=== PATIENT | male | born 1950 | race Two or more races ===

== ENCOUNTER 2019-11-03 13:16 | Inpatient (IN) | payer OTHER ==
[~2019-11-03] VITALS: Ht 160 cm; Wt 68.9 kg
[2019-11-03] MEDS ORDERED: CLINDAMYCIN 600MG IV 50 ML IV ONE (13:30)
[2019-11-03] MEDS ORDERED: PIPERACILLIN-TAZOB 3.375GM 100 ML IV ONE (13:30)
[2019-11-03 14:10] LABS: Basophils # (auto) 0.1 10 ^3/uL (0-0.2); Basophils % (auto) 0.6 % (0.0-2.0); Eosinophils # (auto) 0.2 10 ^3/uL (0-0.8); Eosinophils % (auto) 2.5 % (0.0-7.0); Hematocrit 41.1 % (41.0-53.0); Hemoglobin 13.7 g/dL (13.5-17.5); Lymphocytes # (auto) 1.2 10 ^3/uL (0.4-5.4); Lymphocytes % (auto) 14.1 % (10.0-50.0); Mean Corpuscular Hemoglobin 28.8 pg (28.0-32.0); Mean Corpuscular Hgb Conc. 33.4 g/dL (32.0-36.0); Mean Corpuscular Volume 86.3 fL (80.0-100.0); Monocytes # (auto) 0.5 10 ^3/uL (0-1.3); Monocytes % (auto) 6.1 % (0.0-12.0); Neutrophils # (auto) 6.8 10 ^3/uL (1.6-8.6); Neutrophils % (auto) 76.7 % (37.0-80.0); Nucleated Red Blood Cells % 0.1 %; Platelet Count (auto) 238 10^3/uL (140-450); Red Blood Cells 4.76 10^6/uL (4.5-5.90); Red Cell Distribution Width 13.3 % (11.8-14.3); White Blood Cell 8.8 10^3/uL (4.4-10.8)
[2019-11-03 14:26] LABS: Albumin 3.6 g/dL (3.4-5.0); BUN/Creatinine Ratio 9.9; Calcium 8.6 mg/dL (8.5-10.1); Potassium 4.5 mmol/L (3.5-5.1)
[2019-11-03 14:29] LABS: Bilirubin, Total 0.5 mg/dL (0.2-1.0); Total Protein 8.7 g/dL (6.4-8.2)
[2019-11-03] MEDS: SODIUM CHLORIDE 0.9% 1,000 ML IV SCH (14:47)
[2019-11-03] MEDS ORDERED: MORPHINE SULF INJ 2 MG/ML SYRINGE 1ML IV PRN (15:00)
[2019-11-03] MEDS ORDERED: traMADol HCL 50 MG TAB PO PRN (15:00)
[2019-11-03] MEDS ORDERED: DEXTROSE (50%) 50ML SYRG IV PRN (15:00)
[2019-11-03] MEDS ORDERED: TEMAZEPAM 15 MG CAP PO PRN (15:00)
[2019-11-03] MEDS ORDERED: ACETAMINOPHEN 500 MG TAB PO PRN (15:00)
--- NOTE | 2019-11-03 17:25 | NUR ---
MS admit from ER KANIKA VIDALES admitted to [facility] after SBAR received. Patient oriented to Rosa Hennessy primary RN, unit, room, bed, and unit policies regarding patient care and visiting hours. Patient weighed by bedscale and encouraged to call if they need something. All questions and concerns addressed, patient verbalized understanding.
[2019-11-03] MEDS: ACCU-CHEK COMFORT CURVE STRIP VI SCH ×2 (18:30→21:34)
[2019-11-03] MEDS: InsuLIN REG 1unit/0.01ml Soln (100units/ml) SC SCH ×2 (18:30→21:35)
--- NOTE | 2019-11-03 18:32 | NUR ---
URINE COLLECTED AND SENT TO LAB.
--- NOTE | 2019-11-03 18:35 | NUR ---
BLOOD SUGAR IS 136, PATIENT REFUSED INSULIN. PER PATIENT HE TAKES PILLS AT HOME AND DOES NOT WANT INSULIN.
[2019-11-03 18:47] LABS: Urine Bacteria NONE SEEN /hpf (None Seen); Urine Blood Negative /uL (Negative); Urine WBC 1 /hpf (0 - 3)
--- NOTE | 2019-11-03 19:30 | NUR ---
Opening Shift Note Assumed care of patient, awake and alert x4. Patient denies shortness of breath or pain at this time. Instructed on plan of care and to call for assistance as needed, patient verbalized understanding. Bed is locked in lowest position, side rails x 2 are up, call light is within reach, and bed alarm is on.
--- NOTE | 2019-11-03 20:00 | NUR ---
Wound Pictures Patient noted to have an open wound to the lateral right foot with erythema. Patient also noted to have an open wound between right 4th and 5th digit with erythema and slough noted. Patient noted to have wound to plantar of right foot with erythema. Wounds were cleaned with wound cleanser, patted dry, clean gauze was applied, and wrapped with kerlix. Pictures taken of the wounds for reference.
[2019-11-03] MEDS ORDERED: LISI40TA11 PO (20:04)
[2019-11-03] MEDS ORDERED: CEPH500C PO (20:04)
[2019-11-03] MEDS ORDERED: AMLO5TAB15 PO (20:06)
[2019-11-03] MEDS ORDERED: GLIP5TAB12 PO (20:06)
[2019-11-03] MEDS: CLINDAMYCIN 600MG IV 50 ML IV SCH (21:19)
[2019-11-03 21:53] VITALS: BP 133/74
[2019-11-04 05:00] VITALS: BP 144/81
[2019-11-04] MEDS: CLINDAMYCIN 600MG IV 50 ML IV SCH ×3 (05:47→22:12)
[2019-11-04] MEDS: SODIUM CHLORIDE 0.9% 1,000 ML IV SCH ×3 (05:47→20:51)
[2019-11-04] MEDS: ACCU-CHEK COMFORT CURVE STRIP VI SCH ×4 (05:55→22:12)
[2019-11-04] MEDS: InsuLIN REG 1unit/0.01ml Soln (100units/ml) SC SCH ×4 (05:55→22:17)
[2019-11-04 06:34] LABS: Potassium 5.1 mmol/L (3.5-5.1)
[2019-11-04 06:51] LABS: Albumin 3.1 g/dL (3.4-5.0); BUN/Creatinine Ratio 11.6; Bilirubin, Total 0.6 mg/dL (0.2-1.0); Calcium 8.3 mg/dL (8.5-10.1); Total Protein 7.4 g/dL (6.4-8.2)
--- NOTE | 2019-11-04 08:00 | NUR ---
Opening Shift Note Assumed care of patient, awake and alert. No S/S of distress/SOB or pain. Instructed on POC and to call for assist PRN, will continue to monitor for changes Q1hr and PRN.
[2019-11-04 09:00] VITALS: BP 137/78
[2019-11-04] MEDS: cefTRIAXone 1GM/50ML D5W 50 ML IV SCH (09:21)
--- NOTE | 2019-11-04 10:19 | NUR ---
WOUND CARE NOTE: Noted photographs of patient's wounds taken by bedside nurse upon admission. Process pictures and placed in charts. Podiatry is on the case. Daily Rt foot wound dressing change order placed per sales product manager. Skin/wound care plan placed. RECOMMENDATION: Follow sales product manager order
[2019-11-04 13:00] VITALS: BP 136/79
--- NOTE | 2019-11-04 16:15 | NUR ---
Spoke with Dr. Ellsworth of Podiatry re: cardiology consult, seen by Dr. Souza of Cardiology and ordered bilateral lower extremity angiogram on Monday 11/06. Orders received from Dr. Ellsworth to resume diet.
[2019-11-04 17:00] VITALS: BP 138/81
--- NOTE | 2019-11-04 19:15 | NUR ---
Opening Shift Note Assumed care of patient, awake and alert. No S/S of distress/SOB or pain. Instructed on POC and to call for assist PRN, will continue to monitor for changes Q1hr and PRN. Safety precautions maintained bed is in lowest position and bed rails 2x. Call light and bedside table are within reach.
[2019-11-05 05:00] VITALS: BP 141/75
--- NOTE | 2019-11-05 05:00 | NUR ---
Doppler Per Doppler, Dorsal pedal pulses present on both right and left foot. Patient has no complaints at this time and no s/s of distress or SOB. Will continue to monitor Q1 and PRN.
[2019-11-05] MEDS: SODIUM CHLORIDE 0.9% 1,000 ML IV SCH ×2 (05:36→16:21)
[2019-11-05] MEDS: CLINDAMYCIN 600MG IV 50 ML IV SCH ×3 (05:36→21:53)
[2019-11-05 06:22] LABS: BUN/Creatinine Ratio 14.7; Calcium 8.1 mg/dL (8.5-10.1); Potassium 4.4 mmol/L (3.5-5.1)
[2019-11-05] MEDS: ACCU-CHEK COMFORT CURVE STRIP VI SCH ×4 (06:29→21:53)
[2019-11-05] MEDS: InsuLIN REG 1unit/0.01ml Soln (100units/ml) SC SCH ×4 (06:29→21:50)
--- NOTE | 2019-11-05 07:25 | NUR ---
End of Shift Note Endorsed care to Dolores HOLLIS. Patient has no s/s of distress or SOB. Patient awakens to name.
--- NOTE | 2019-11-05 08:30 | NUR ---
Opening Shift Note Assumed care of patient, awake, alert, and oriented. No S/S of distress/SOB or pain. Bed in lowest/locked position, bed rails up x2, call light within reach. Instructed on POC and to call for assist PRN. Will continue to monitor for changes Q1hr and PRN.
[2019-11-05 09:00] VITALS: BP 139/79
[2019-11-05] MEDS: FLORASTOR (S. BOULARDII) 250 MG CAP PO SCH (09:46)
[2019-11-05] MEDS: ENOXAPARIN SOD 40 MG/0.4 ML SYRINGE SC SCH (09:46)
[2019-11-05] MEDS: cefTRIAXone 1GM/50ML D5W 50 ML IV SCH (09:46)
--- NOTE | 2019-11-05 11:00 | NUR ---
MD ROUNDS DR TAI AT BEDSIDE DISCUSSING POC WITH PATIENT. NO NEW ORDERS RECIEVED AT THIS TIME. WILL CONTINUE TO MONITOR
--- NOTE | 2019-11-05 11:10 | NUR ---
WOUND WOUND DRESSING CHANGED TO RIGHT FOOT PER MD ORDERS. PATIENT TOLERATED WELL. WILL CONTINUE TO MONITOR
[2019-11-05 13:00] VITALS: BP 139/78
--- NOTE | 2019-11-05 16:34 | NUR ---
Nutrition Assessment Notes Please refer to link for full assessment notes. Est Energy needs: 9838-8000 kcals (17-20 kcal/kgBW) Est Protein needs: 74-92 gms/day (1.2-1.5 gm/kgBW) d/t wound Will continue to monitor and reassess prn. Addendum: 11/05/19 at [address] Amended: Links added.
[2019-11-05 17:00] VITALS: BP 135/79
--- NOTE | 2019-11-05 19:25 | NUR ---
Opening Shift Note Assumed care of patient, awake and alert. No S/S of distress/SOB or pain. Instructed on POC and to call for assist PRN, will continue to monitor for changes Q1hr and PRN. Safety precautions maintained bed is in lowest position and locked, bed rails 2x. Call light and bedside table are within reach.
--- NOTE | 2019-11-05 20:00 | NUR ---
Bilateral dorsal pedal pulses present via Doppler Patient has no complaints at this time. Will continue to monitor Q1 and PRN.
[2019-11-05 22:04] VITALS: BP 151/79
[2019-11-06] MEDS: SODIUM CHLORIDE 0.9% 1,000 ML IV SCH ×3 (03:04→23:03)
[2019-11-06 05:00] VITALS: BP 151/77
--- NOTE | 2019-11-06 05:00 | NUR ---
Wound Care Performed wound care on right foot per MD orders. Patient tolerated well. Will continue to monitor Q1 and PRN.
[2019-11-06] MEDS: CLINDAMYCIN 600MG IV 50 ML IV SCH ×3 (05:38→23:03)
[2019-11-06] MEDS: ACCU-CHEK COMFORT CURVE STRIP VI SCH ×4 (06:24→22:00)
[2019-11-06] MEDS: InsuLIN REG 1unit/0.01ml Soln (100units/ml) SC SCH ×4 (06:24→22:00)
--- NOTE | 2019-11-06 07:18 | NUR ---
End of Shift Note Endorsed care to Dolores HOLLIS. At this time patient has no s/s of distress or pain, awakens to voice and touch, no complaints.
[2019-11-06 09:00] VITALS: BP 139/83
[2019-11-06] MEDS: ENOXAPARIN SOD 40 MG/0.4 ML SYRINGE SC SCH (09:04)
[2019-11-06] MEDS: cefTRIAXone 1GM/50ML D5W 50 ML IV SCH (09:04)
[2019-11-06] MEDS: FLORASTOR (S. BOULARDII) 250 MG CAP PO SCH (09:05)
--- NOTE | 2019-11-06 11:30 | NUR ---
MD ROUNDS DR TAI AT BEDSIDE DISCUSSING POC WITH PATIENT. NO NEW ORDERS RECIEVED AT THIS TIME. WILL CONTINUE TO MONITOR
[2019-11-06 13:00] VITALS: BP 150/86
[2019-11-06 17:00] VITALS: BP 140/82
--- NOTE | 2019-11-06 19:15 | NUR ---
Opening Shift Note Assumed care of patient, awake, alert, and oriented x4. No S/S of distress/SOB or pain. Instructed on POC and to call for assist PRN, will continue to monitor for changes Q1hr and PRN. Safety precautions in place bed is in lowest position and locked, bed rails 2x. Call light and bedside table are within reach.
[2019-11-06 21:42] VITALS: BP 142/77
--- NOTE | 2019-11-06 22:00 | NUR ---
Refused insulin Blood sugar 133. Patient states he will not be eating anymore for the night and wants to hold the insulin. Will continue to monitor Q1 and PRN.
[2019-11-07 05:00] VITALS: BP 144/88
--- NOTE | 2019-11-07 05:00 | NUR ---
Wound Care Performed wound care to right foot per MD orders. Patient tolerated well. Will continue to monitor Q1 and PRN.
[2019-11-07 06:19] LABS: Basophils # (auto) 0.1 10 ^3/uL (0-0.2); Basophils % (auto) 0.9 % (0.0-2.0); Eosinophils # (auto) 0.3 10 ^3/uL (0-0.8); Eosinophils % (auto) 5.3 % (0.0-7.0); Hematocrit 39.8 % (41.0-53.0); Hemoglobin 13.4 g/dL (13.5-17.5); Lymphocytes # (auto) 1.1 10 ^3/uL (0.4-5.4); Lymphocytes % (auto) 16.8 % (10.0-50.0); Mean Corpuscular Hemoglobin 29.1 pg (28.0-32.0); Mean Corpuscular Hgb Conc. 33.8 g/dL (32.0-36.0); Mean Corpuscular Volume 86.2 fL (80.0-100.0); Monocytes # (auto) 0.4 10 ^3/uL (0-1.3); Neutrophils # (auto) 4.5 10 ^3/uL (1.6-8.6); Nucleated Red Blood Cells % 0.1 %; Platelet Count (auto) 242 10^3/uL (140-450); Red Blood Cells 4.61 10^6/uL (4.5-5.90); Red Cell Distribution Width 13.5 % (11.8-14.3); White Blood Cell 6.4 10^3/uL (4.4-10.8)
[2019-11-07] MEDS: InsuLIN REG 1unit/0.01ml Soln (100units/ml) SC SCH ×4 (06:22→22:00)
[2019-11-07] MEDS: ACCU-CHEK COMFORT CURVE STRIP VI SCH ×4 (06:22→22:00)
[2019-11-07 06:34] LABS: INR 0.97 (0.9-1.15); Partial Thromboplastin Time 29.9 sec (23.64-32.05)
[2019-11-07 06:38] LABS: Potassium 5.2 mmol/L (3.5-5.1)
[2019-11-07 06:48] LABS: BUN/Creatinine Ratio 13.7
[2019-11-07] MEDS: CLINDAMYCIN 600MG IV 50 ML IV SCH (07:00)
--- NOTE | 2019-11-07 07:28 | NUR ---
End of Shift Note Endorsed care to Jill HOLLIS. At this time patient has no s/s of distress or SOB. Patient is alert and oriented x4. No complaints at this time.
[2019-11-07] MEDS ORDERED: LIDOCAINE 2%HCL (LOCAL ANESTH.) INJ 20ML MDV ONE (07:52)
[2019-11-07] MEDS ORDERED: IOHEXOL 350 MG/ML 100ML IJ ONE ×2 (07:52→09:19)
[2019-11-07] MEDS ORDERED: ANGIOMAX 250 MG VIAL IV ONE (08:20)
[2019-11-07] MEDS ORDERED: MIDAZOLAM HCL 1MG/1ML-2 ML VIAL ONE (08:22)
[2019-11-07] MEDS ORDERED: fentaNYL CITRATE 100 MCG/2 ML VL ONE (08:22)
[2019-11-07] MEDS ORDERED: SODIUM CHL 0.9% 50 ML ONE (08:23)
[2019-11-07] MEDS: SODIUM CHLORIDE 0.9% 1,000 ML IV SCH ×2 (08:47→15:03)
[2019-11-07 09:00] VITALS: BP 139/87
[2019-11-07] MEDS: cefTRIAXone 1GM/50ML D5W 50 ML IV SCH (09:00)
[2019-11-07] MEDS ORDERED: CLOPIDOGREL 300 MG TAB ONE (09:51)
[2019-11-07] MEDS: ENOXAPARIN SOD 40 MG/0.4 ML SYRINGE SC SCH (10:00)
--- NOTE | 2019-11-07 10:58 | NUR ---
RETURNED TO ROOM FROM INDUSTRIAL RELATIONS COMMISSIONER DRESSING TO LEFT GROIN CLEAN DRY AND INTACT.
[2019-11-07 13:00] VITALS: BP 135/80
[2019-11-07] MEDS: FLORASTOR (S. BOULARDII) 250 MG CAP PO SCH (14:53)
[2019-11-07] MEDS: ASPirin-EC 81 mg tab PO SCH (14:53)
[2019-11-07 17:00] VITALS: BP 155/88
--- NOTE | 2019-11-07 19:15 | NUR ---
Opening shift note Assumed care of patient. Patient A&Ox4 sitting up in bed, respirations even and non-labored with no s/s of distress. Discussed POC with patient who verbalized understanding. Bed locked/lowered with 2 side rails up. Call light within reach, will continue to monitor.
--- NOTE | 2019-11-07 20:00 | NUR ---
IV placed: Patient IV to left FA leaking, removed with catheter intact. New IV placed in right FA, 20 gauge. Patient tolerated well.
[2019-11-07] MEDS: LINEZOLID 600MG/300ML 300 ML IV SCH (21:30)
[2019-11-07 22:00] VITALS: BP 144/83
[2019-11-08] MEDS: SODIUM CHLORIDE 0.9% 1,000 ML IV SCH ×2 (03:57→15:29)
[2019-11-08 05:00] VITALS: BP 153/85
--- NOTE | 2019-11-08 05:30 | NUR ---
Dressing change: Dressing change to right foot/toe per wound care instructions. Patient tolerated well.
[2019-11-08] MEDS: ACCU-CHEK COMFORT CURVE STRIP VI SCH ×4 (06:32→21:53)
[2019-11-08] MEDS: InsuLIN REG 1unit/0.01ml Soln (100units/ml) SC SCH ×4 (06:32→21:58)
--- NOTE | 2019-11-08 07:24 | NUR ---
AWAKE ALERT ORIENTED TIMES 4 DENIES ANY PAIN AT THIS TIME PLAN FOR SURGERY TOMORROW.
[2019-11-08 08:45] VITALS: BP 139/88
[2019-11-08] MEDS: ASPirin-EC 81 mg tab PO SCH (09:52)
[2019-11-08] MEDS: ENOXAPARIN SOD 40 MG/0.4 ML SYRINGE SC SCH (09:53)
[2019-11-08] MEDS: FLORASTOR (S. BOULARDII) 250 MG CAP PO SCH (09:58)
[2019-11-08] MEDS: LINEZOLID 600MG/300ML 300 ML IV SCH ×2 (09:59→21:35)
[2019-11-08] MEDS ORDERED: CLOPIDOGREL BISULFATE 75 MG TAB PO SCH (10:00)
[2019-11-08 12:50] VITALS: BP 148/84
[2019-11-08 17:00] VITALS: BP 147/72
[2019-11-08 22:00] VITALS: BP 154/85
--- NOTE | 2019-11-08 22:24 | NUR ---
1899.REPORT OBTAINED ON PATIENT. 1999. PATIENT SEEN IN ROOM LYING SUPINE ON HIS BED. FEELS WELL. DENIED PAIN. AWARE OF HIS SURGICAL PROCEDURE IN AM. WILL SIGN CONSENT
[2019-11-09] MEDS: SODIUM CHLORIDE 0.9% 1,000 ML IV SCH (00:26)
--- NOTE | 2019-11-09 01:56 | NUR ---
WILL SIGN CONSENT AFTER DAY BREAK. STATED THERE IS POOR VISION.
--- NOTE | 2019-11-09 02:29 | NUR ---
PATIENT IS SLEEPING AT THIS TIME. IVF INFUSING. IV SITE CLEAR AND DRY.
[2019-11-09 05:00] VITALS: BP 141/73
--- NOTE | 2019-11-09 05:19 | NUR ---
0500. PATIENT AWAKE. BODY WIPED DOWN WITH CHLORHEXIDINE WIPES.
[2019-11-09] MEDS: ACCU-CHEK COMFORT CURVE STRIP VI SCH (06:19)
[2019-11-09] MEDS: InsuLIN REG 1unit/0.01ml Soln (100units/ml) SC SCH (06:20)
--- NOTE | 2019-11-09 07:30 | NUR ---
Opening Shift Note Assuming care of patient at this time. Patient is awake and alert. Patient denies pain. Patient shows no signs or symptoms of distress or shortness of breath. Bed is locked and lowered with side rails up x2. Instructed patient on the plan of care for today and call for assistance as needed. Call light within reach. Will continue to round hourly and as needed.
[2019-11-09] MEDS ORDERED: BUPIVACAINE HCL 50 ML ONE (08:05)
[2019-11-09] MEDS ORDERED: LIDOCAINE 1% HCL (LOCAL ANESTH.) INJ 20ML MDV ONE ×2 (08:05→08:20)
--- NOTE | 2019-11-09 08:25 | NUR ---
IV insertion IV access obtained, via clean sterile technique by inserting 22 gauge catheter at left forearm. IV secured properly. No trauma to site. Patient tolerated well.
[2019-11-09] MEDS ORDERED: SODIUM CHLORIDE LOCK 10 ML ONE (08:38)
[2019-11-09] MEDS ORDERED: ONDANSETRON HCL 4 MG/2 ML VIAL ONE (08:38)
[2019-11-09] MEDS ORDERED: fentaNYL CITRATE 100 MCG/2 ML VL ONE (08:38)
[2019-11-09] MEDS ORDERED: MIDAZOLAM HCL 1MG/1ML-2 ML VIAL ONE (08:38)
[2019-11-09] MEDS ORDERED: PROPOFOL 10 MG/ML 20 ML IV ONE (08:38)
--- NOTE | 2019-11-09 08:45 | NUR ---
Re: Patient taken to OR Patient taken to OR at this time.
[2019-11-09 09:00] VITALS: BP 153/84
--- NOTE | 2019-11-09 09:40 | NUR ---
Re: Patient back on unit Patient back on unit. Dr. Saleh at bedside discussing plan of care with patient and daughter (daughter on cellphone). Patient is refusing to proceed with amputation as planned. Daughter on phone to further explain/translate need for amputation, however, patient continues to refuse at this time. Dr. Saleh informed patient and daughter if patient's decides to proceed with surgery in the near future. Procedure can be done with Dr. Ellsworth, on Thursday.
--- NOTE | 2019-11-09 10:25 | NUR ---
AMA Note KANIKA VIDALES states they want to leave the hospital Against Medical Advice (AMA). Patient encouraged to stay for further treatment/stabilization. Dano Singleton MD notified of patient's wishes. Patient advised of the risks and benefits of leaving AMA. Patient verbalized understanding. Patient encouraged to return to the ER if symptoms do not improve or worsen.
--- NOTE | 2019-11-09 10:30 | NUR ---
IV removal IV DC'd with clean sterile technique, catheter fully intact. Pressure dressing applied to site. Patient tolerated well.
--- NOTE | 2019-11-09 10:30 | NUR ---
Re: Discharge Photos Patient is refusing discharge photos at this time. Patient expresses that he just wants to go home. Patient has signed AMA form. Awaiting family to pick-up.
--- NOTE | 2019-11-09 11:17 | NUR ---
Discharge/AMA Patient decided to leave AMA at this time. All questions and concerns addressed. Patient verbalized understanding. IV removed with catheter intact, pressure dressing applied. Patient taken to vehicle via wheelchair with all personal belongings. No distress noted at time of departure.
== END 2019-11-09 10:30 | disposition left against medical advice (07) | DRG 253 ==
LOC: ER 13:16 → OVERFLOW 13:17 → WEST WING 17:40
PROVIDERS: ADMIT Internal Medicine; ATTEND Internal Medicine
PROC: 047P3ZZ Dilation of Right Anterior Tibial Artery, Percutaneous Approach (ICD-10-PCS; principal; 2019-11-07)
PROC: 047T3ZZ Dilation of Right Peroneal Artery, Percutaneous Approach (ICD-10-PCS; 2019-11-07)
PROC: B41G1ZZ Fluoroscopy of Left Lower Extremity Arteries using Low Osmolar Contrast (ICD-10-PCS; 2019-11-07)
PROC: B41F1ZZ Fluoroscopy of Right Lower Extremity Arteries using Low Osmolar Contrast (ICD-10-PCS; 2019-11-07)
DX: E11.51 Type 2 diabetes mellitus with diabetic peripheral angiopathy without gangrene (principal); I70.92 Chronic total occlusion of artery of the extremities; L03.115 Cellulitis of right lower limb; E87.1 Hypo-osmolality and hyponatremia; L97.519 Non-pressure chronic ulcer of other part of right foot with unspecified severity; N18.3 Chronic kidney disease, stage 3 (moderate); I25.10 Atherosclerotic heart disease of native coronary artery without angina pectoris; R91.1 Solitary pulmonary nodule; I12.9 Hypertensive chronic kidney disease with stage 1 through stage 4 chronic kidney disease, or unspecified chronic kidney disease; E11.22 Type 2 diabetes mellitus with diabetic chronic kidney disease; E11.621 Type 2 diabetes mellitus with foot ulcer; Z79.899 Other long term (current) drug therapy; Z83.3 Family history of diabetes mellitus; E11.628 Type 2 diabetes mellitus with other skin complications
CPT/HCPCS: 36415; 37228; 71045; 71250; 73700; 75710; 80048; 80053; 81001; 82962; 83036; 83605; 85025; 85610; 85652; 85730; 86850; 86900; 86901; 87040; 87077; 87186; 87205; 93306; 93926; 96365; 96367; 99152; 99153; C1769; G0378; J0696; J1815; J2001; J2250; J2405; J2543; J2704; J3490